=== PATIENT | male | born 1975 | race Caucasian/White ===

== ENCOUNTER → 2018-12-22 | Outpatient (CLI) | payer MEDICAID ==
[2018-12-22 13:18] LABS: Basophils # (A) 0.2 k/uL (0-0.2); Basophils % (A) 3 %; Eosinophils # (A) 0.4 k/uL (0-0.7); Eosinophils % (A) 6 %; HCT 46.7 % (39.0-53.0); HGB 16.1 gm/dL (13.0-17.5); Lymphocytes # (A) 1.4 k/uL (1.0-4.8); Lymphocytes % (A) 22 %; MCH 31.1 pg (25.0-35.0); MCHC 34.4 g/dL (31.0-37.0); MCV 90.4 fL (80.0-100.0); Mean Platelet Volume 6.9; Monocytes # (A) 0.9 k/uL (0-1.0); Monocytes % (A) 14 %; Neutrophils # (A) 3.3 k/uL (1.3-7.7); Neutrophils % (A) 53 %; Platelet Count 255 k/uL (150-450); RBC 5.16 m/uL (4.30-5.90); RDW 13.4 % (11.5-15.5); WBC 6.3 k/uL (3.8-10.6)
[2018-12-22 13:49] LABS: Erythrocyte Sedimentation Rate 29 mm/hr (0-15)
[2018-12-22 19:25] LABS: African American GFR (CKD) 143.7 (60.0-200.0); Anion Gap 8.7 mmol/L (4.00-12.00); BUN/Creat Ratio 18.33 Ratio (12.00-20.00); C Reactive Protein 2.4 mg/dL (0.0-0.8); Calcium 8.6 mg/dL (8.7-10.3); Carbon Dioxide 24.3 mmol/L (21.6-31.8); Potassium 4.3 mmol/L (3.5-5.5); Uric Acid 5.4 mg/dL (3.7-8.7)
[2018-12-22 19:33] LABS: T4, Free (Free Thyroxine) 0.9 ng/dL (0.80-1.80)
[2018-12-22 20:23] LABS: Cyclic Citrull Pep IgG Unit >300.0 U/mL; Cyclic Citrullinated Pep IgG POSITIVE (NEGATIVE)
[2018-12-23 11:47] LABS: Angiotensin-1 Converting Enz. 55 U/L (8-52)
[2018-12-25 13:04] LABS: HLA B27 NEGATIVE
[2018-12-25 13:20] LABS: ANA Pattern See Footnote
== END | disposition home or self-care (01) ==
LOC: LABWHC1 12:28
PROVIDERS: ATTEND Internal Medicine Rheumatology
DX: M13.0 Polyarthritis, unspecified (principal); M54.5 Low back pain; G89.29 Other chronic pain; E55.9 Vitamin D deficiency, unspecified; E03.9 Hypothyroidism, unspecified
CPT/HCPCS: 36415; 80048; 82164; 82306; 82550; 84439; 84443; 84450; 84460; 84550; 85025; 85652; 86038; 86039; 86140; 86200; 86431; 86812